=== PATIENT | male | born 1950 | race Caucasian/White ===

== ENCOUNTER 2019-12-27 07:35 | Day surgery (SDC) | payer MEDICARE, BC ==
[~2019-12-27 07:35] MED LIST: Lactated Ringers 1,000 ML IV SCH; Sodium Chloride 0.9% 10 ML Syringe FLUSH PRN
[2019-12-27] MEDS ORDERED: Propofol 200 MG/20 ML SDV IV ONE (07:36)
--- NOTE | 2019-12-27 09:16 | PCM.OPNOTE ---
- General Post-Op/Procedure Note Date of Surgery/Procedure: 12/27/19 Operative Procedure(s): egd with bx. c scope with bx Findings: gastroduodenitis esophagitis submucosal lesion of stomach ascending colon polyp x2 descending colon polyp x3 Pre Op Diagnosis: colon cancer screening. dysphagia Post-Op Diagnosis: gastroduodenitis. esophagitis. submucosal lesion of stomach. ascending colon polyp x2. descending colon polyp x3 Anesthesia Technique: MAC Primary Surgeon: Xu Mansfield Anesthesia Provider: Beto Amador Pathology: gastric and duodenal biopsy esophageal biopsy ascending colon polyp x2 descending colon polyp x3 Condition: Good
--- NOTE | 2019-12-27 12:55 | OR ---
DATE OF OPERATION: 12/27/2019 SURGEON: Xu Mansfield MD PROCEDURES PERFORMED: Esophagogastroduodenoscopy with cold forceps biopsy and colonoscopy with cold forceps biopsy. PREOPERATIVE DIAGNOSIS: Dysphagia, as well as need for colon cancer screening. POSTOPERATIVE DIAGNOSES: Gastroduodenitis, esophagitis, questionable submucosal mass of the body of the stomach. In addition, ascending colon polyps x2 and descending colon polyps x3. INDICATIONS FOR PROCEDURE: This is a 69-year-old white male who presents with a history of dysphagia. In addition, he needs a screening colonoscopy. He was offered and accepted same. DESCRIPTION OF OPERATION: After an excellent IV sedation was administered, the flexible endoscope was passed without difficulty down the patient's esophagus into the stomach. The stomach was insufflated. Scope was passed through the pylorus to the second portion of the duodenum and slowly withdrawn. The following findings were noted: Duodenum, duodenitis, biopsies were taken. Stomach, some diffuse gastritis, biopsies were taken. In addition, there was roughly a 1 cm submucosal mass in the body of the stomach. Attempts to move it to see if it was a lipoma were not successful. We did biopsy over the area. This was submitted with gastric contents. Further workup may be indicated. Esophagus at the distal esophagus, some mild esophagitis. Biopsies were taken. The stomach was deflated and the scope was removed. Our attention was then turned to the colon. Digital rectal exam was performed. No marked abnormality. Flexible colonoscope was inserted and advanced to the cecum. Prep was excellent. Following findings were noted: Ascending colon, 2 polyps, biopsied with cold biopsy forceps and sent for permanent. Transverse colon unremarkable. Descending colon, three small polyps, biopsied and submitted in 1 container. Sigmoid, unremarkable. Rectum and anus, unremarkable. Colon was deflated as the scope was removed. The patient tolerated the procedure well, was taken to Recovery. /[id number] /MODL
== END 2019-12-27 10:20 | disposition home or self-care (01) ==
LOC: FB.SDS 07:35
PROVIDERS: ATTEND Surgery
DX: Z12.11 Encounter for screening for malignant neoplasm of colon (principal); D12.4 Benign neoplasm of descending colon; K21.0 Gastro-esophageal reflux disease with esophagitis; K29.90 Gastroduodenitis, unspecified, without bleeding; K31.89 Other diseases of stomach and duodenum; E78.2 Mixed hyperlipidemia; E66.9 Obesity, unspecified; I10 Essential (primary) hypertension; G47.33 Obstructive sleep apnea (adult) (pediatric); Z79.899 Other long term (current) drug therapy; Z88.1 Allergy status to other antibiotic agents; Z88.5 Allergy status to narcotic agent; Z68.29 Body mass index [BMI] 29.0-29.9, adult
CPT/HCPCS: 00813; 43239; 45380; 88305; 88342; J2704; J7120